=== PATIENT | female | born 1955 | race Caucasian/White ===

== ENCOUNTER 2018-07-21 09:19 | Day surgery (SDC) | payer OTHER ==
[2018-07-21] MEDS ORDERED: GABAPENTIN800 MG PO (09:57)
[2018-07-21] MEDS ORDERED: XARELTO20 MG PO (09:57)
[2018-07-21] MEDS ORDERED: VYTORIN 10-401 EACH PO (09:58)
[2018-07-21] MEDS ORDERED: PLETAL PO (09:58)
[2018-07-21] MEDS ORDERED: VIT D PO (09:59)
[2018-07-21] MEDS ORDERED: IBRERSARTAN PO (10:00)
[2018-07-21] MEDS ORDERED: HUMULIN 70100 UNIT/2 (10:00)
== END 2018-07-21 14:05 | disposition home or self-care (01) ==
LOC: AMB-ENDOS 09:19
DX: R15.9 Full incontinence of feces (principal); K57.30 Diverticulosis of large intestine without perforation or abscess without bleeding